=== PATIENT | male | born 1965 | race Caucasian/White ===

== ENCOUNTER 2023-01-24 18:51 | Emergency (ER) | payer OTHER ==
[~2023-01-24] VITALS: Ht 167.6 cm; Wt 71.6 kg
[2023-01-24] MEDS ORDERED: OMEPRAZOLE20 MG PO (19:26)
[2023-01-24] MEDS ORDERED: METFORMIN HCL500 MG PO (19:26)
[2023-01-24] MEDS ORDERED: LIPITOR20 MG PO (19:27)
[2023-01-24] MEDS ORDERED: AMOX TR-K CLV1 EAC1 PO (19:56)
== END 2023-01-24 20:16 | disposition home or self-care (01) ==
LOC: ED 18:51
DX: K04.7 Periapical abscess without sinus (principal); K21.9 Gastro-esophageal reflux disease without esophagitis; E11.9 Type 2 diabetes mellitus without complications; I10 Essential (primary) hypertension; E78.00 Pure hypercholesterolemia, unspecified; Z79.899 Other long term (current) drug therapy; Z79.84 Long term (current) use of oral hypoglycemic drugs
CPT/HCPCS: 99282